=== PATIENT | male | born 1940 | race Caucasian/White ===

== ENCOUNTER 2017-11-12 19:03 | Emergency (ER) | payer OTHER ==
[2017-11-12] MEDS ORDERED: TETANUS, DIPHTHERIA TOX (7YR+) 0.5 ML INJ IM ONE (19:21)
[2017-11-12] MEDS ORDERED: TDAP ADULT 0.5 ML INJ (BOOSTRIX) IM ONE (19:39)
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
[2017-11-12 20:44] VITALS: BP 116/71
== END 2017-11-12 20:42 | disposition home or self-care (01) ==
PROC: 0HQ1XZZ Repair Face Skin, External Approach (ICD-10-PCS; principal; 2017-11-12)
DX: S01.81XA Laceration without foreign body of other part of head, initial encounter (principal); S90.31XA Contusion of right foot, initial encounter; Z23 Encounter for immunization; W55.12XA Struck by horse, initial encounter; Y92.9 Unspecified place or not applicable